=== PATIENT | male | born 1970 | race Caucasian/White ===

== ENCOUNTER 2018-07-02 05:42 | Day surgery (SDC) | payer OTHER ==
[~2018-07-02 05:42] MED LIST: CEFAZOLIN 2 GM/D5W RTU 2 GM/50 ML RTUPB IV PRN; LACTATED RINGERS 1000 ML IV PRN; LIDOCAINE 0.5% INJ-PF (5 MG/ML) 50 ML SDV SUBCUT PRN
[2018-07-02] MEDS ORDERED: CEFAZOLIN 2 GM/D5W RTU 2 GM/50 ML RTUPB IV ONE (06:16)
[2018-07-02] MEDS ORDERED: FENTANYL CITRATE INJ/PF 100 MCG/2 ML AMPUL ONE ×2 (06:39→06:42)
[2018-07-02] MEDS ORDERED: KETOROLAC TROMETHAMINE 60 MG/2 ML SDV ONE (06:39)
[2018-07-02] MEDS ORDERED: MIDAZOLAM 2 MG/2 ML INJ ONE (06:40)
[2018-07-02] MEDS ORDERED: HYDROMORPHONE HCL INJ/PF 2 MG/ML AMPULE ONE (06:40)
[2018-07-02] MEDS ORDERED: EPHEDRINE SULFATE INJ 50 MG/1 ML AMPULE ONE (06:40)
[2018-07-02] MEDS ORDERED: ONDANSETRON HCL INJ/PF 4 MG/2 ML SDV ONE (06:40)
[2018-07-02] MEDS ORDERED: DEXAMETHASONE SOD PHOSPHATE INJ 4 MG/1 ML VIAL ONE (06:40)
[2018-07-02] MEDS ORDERED: ACETAMINOPHEN 1,000 MG/100 ML RTUPB IV ONE (06:41)
[2018-07-02] MEDS ORDERED: PROPOFOL INJ 200 MG/20 ML VIAL IV ONE ×2 (06:41→07:05)
[2018-07-02] MEDS ORDERED: DEXMEDETOMIDINE INJ 80 MCG/20 ML VIAL IV ONE (07:05)
[2018-07-02] MEDS ORDERED: BACITRACIN INJ 50,000 UNIT VIAL ONE (07:21)
[2018-07-02] MEDS ORDERED: THROMBIN (BOVINE) TOPICAL 20000 UNIT VIAL ONE (07:22)
[2018-07-02] MEDS ORDERED: MORPHINE SULFATE 10 MG/ML INJ IV PRN ×2 (08:57→09:41)
[2018-07-02] MEDS ORDERED: OXYCODONE-ACETAMINOPHEN 5-325 MG TABLET PO PRN ×5 (08:57→11:00)
[2018-07-02] MEDS ORDERED: PROMETHAZINE HCL INJ 25 MG/1 ML VIAL IV PRN ×4 (08:57→09:41)
[2018-07-02] MEDS ORDERED: MEPERIDINE HCL/PF INJ 25 MG/1 ML DISP.SYRIN IV PRN ×2 (08:57→09:41)
[2018-07-02] MEDS ORDERED: DIPHENHYDRAMINE HCL 50 MG/ML VIAL IV PRN ×2 (08:57→09:41)
[2018-07-02] MEDS ORDERED: FENTANYL CITRATE INJ/PF 100 MCG/2 ML AMPUL IV PRN ×6 (08:57→09:41)
[2018-07-02] MEDS ORDERED: ONDANSETRON HCL INJ/PF 4 MG/2 ML SDV IV PRN ×3 (08:57→11:33)
[2018-07-02] MEDS: FENTANYL CITRATE INJ/PF 100 MCG/2 ML AMPUL ONE ×2 (10:45→11:00)
[2018-07-02] MEDS: HYDROCOD/ACETAMIN 7.5-325 MG/15 ML ORAL SOLN UDCUP PO PRN ×2 (10:45→11:50)
--- NOTE | 2018-07-02 10:46 | OPERATIVE REPORT E ---
Operative Report NAME: MIKHAIL MANN : 1970 AGE: 48Y DATE OF SURGERY: 07/02/2018 ROOM: PREOPERATIVE DIAGNOSIS: HERNIATED NUCLEUS PULPOSUS, STENOSIS, RADICULITIS, DEGENERATIVE DISK DISEASE, NECK PAIN. POSTOPERATIVE DIAGNOSIS: HERNIATED NUCLEUS PULPOSUS, STENOSIS, RADICULITIS, DEGENERATIVE DISK DISEASE, NECK PAIN. OPERATION: C6-7 anterior cervical diskectomy and fusion with instrumentation and interbody spacer, allograft, iliac crest aspiration through separate incision, right iliac crest for bone marrow aspirate to be used with allograft in interbody spacer. SURGEON: YELENA ESTRELLA M.D. ERP SPECIALIST: Maciel Contreras PA-C ANESTHESIA: General endotracheal intubation. ESTIMATED BLOOD LOSS: 75 mL. INDICATIONS: The patient is a 48-year-old male who has a sizeable disk extrusion with severe spinal cord compression, myelopathic and radiculopathic symptoms. After discussion with the patient of the risks, indications, alternatives, including the fact that he has significant weakness and numbness and balance and gait disturbance problems, determination was to proceed with surgical intervention. I discussed with the patient the risks including the risk of infection, bleeding, damage to nerves or blood vessels, the risk of dural tear, the risk of spinal headache, the risk of needing further surgery, the risk of adjacent level arthritis which he has already, and possible need for further surgery. The patient also understood the risk of nonunion, which I discussed with him and the risk of dysphagia and dysphonia. We discussed these things with him and his and the patient wished to pursue surgical intervention. OPERATIVE TECHNIQUE: The patient was brought into the room, placed under anesthesia, received 2 grams of Ancef preoperatively. He had SCDs and warm blankets placed on him. Antibiotics were given within 1 our of cut time. After completion of prepping and draping under lateral C-arm fluoroscopy the C6-7 level was identified and marked appropriately. The right iliac crest is prepped and draped separately and the Jamshidi needle was introduced into the iliac crest 9 cm posterior to the anterior superior iliac spine. Upon aspiration of 3 mL of bone marrow aspirate, the site was cleansed and dressed with a Band-Aid. Then, attention was paid to the cervical spine. A bolster was placed between the shoulder blades. Next, placed in neutral position, arms and medial epicondyles are well padded and arms are tucked to the side. Neuromonitoring leads are placed *------* and baselines are obtained preoperatively. After completion of prepping and draping and after surgical timeout, a transverse incision was carried down through the skin using sharp dissection, then electrocautery, then the platysmas incised and the pretracheal fascia is dissected out. The esophagus and the trachea are retracted medially. The sternocleidomastoid with the blood vessels are retracted laterally and the prevertebral fascia is identified. Again, the [place] retractor system is positioned, exposing the prevertebral fascia and Kittner's are used to dissect out the prevertebral fascia. The disk space was identified at C6-7 and a bent needle was placed to fiordaliza the level at C6-7. Upon marking that level, lateral C-arm fluoroscopy was used to verify that level and upon verification of that level, Boyce pins are positioned into the C6 and C7 vertebral bodies. Then, upon retracting cephalad to caudad, a Boyce pin retractor was used to retract and expose that area. The microscope was then brought in. Under the microscope an annulotomy was performed and a complete diskectomy performed resecting the posterior longitudinal ligament which significantly there is extruded piece of disk behind the vertebral body of C7 which I removed piecemeal. Then there was a very large piece which had been extruded sitting all of the way behind the vertebral body. Removed using a long nerve hook and that is freed up. After that, the bipolar electrocautery was used to coagulation small little bleeders and foraminotomies were preformed bilaterally. The end plate are curetted to good bleeding bone and then the appropriate size spacing being 7 mm lordotic spacer determined based on the sizers. After that, the AGX coalition spacer 12 x 14 x 7 mm, 7 degree lordotic is utilized plus an AGX reduced profile 14 wide 17 high plate is attached together and is placed inline with the patient. After the spacer was filled with 2 mL of conduct matrix calcium phosphate putty with bone marrow aspirate is placed together in the interbody space. After attaching the spacer in the plate, the 16 x 3.6 mm self-drilling variable angle screws are placed into the plate and locked into the plate. Cranial motor testing is obtained in comparison to the preoperative cranial motor testing, found to be significantly improved and the patient did very well. Please note that bipolar electrocautery was utilized. FloSeal was also used to coagulate small little bleeders. The patient's wound was irrigated with a liter of bacitracin irrigation and then a 7-Flat faroese drain is brought in inferolateral to the incision with negative DUKE pressure. The platysma is reapproximated using 2-0 Vicryl. The drain stitch is tied to the skin and patient will be admitted and observed to see how he is doing. The patient tolerated the procedure well. Estimated blood 75 mL. Please note that the bone marrow aspirate is utilized as a better choice than bone marrow harvesting which has 20% chronic hip pain and similar fusion rates for 1 level plate with instrumentation and interbody spacer. Patient tolerated the procedure well. Extubated and brought to the recovery room. Condition is stable. Please note, the procedure could not have been done without the assistance of Maciel Contreras. DICTATING PHYSICIAN: YELENA ESTRELLA M.D. [id number] PHY#: [id number] ID: [id number] JOB#: [id number] ACCT: [id number] cc:YELENA ESTRELLA M.D. >
[2018-07-02] MEDS ORDERED: ACETAMINOPHEN SOLN 325 MG/10.15 ML UDCUP PO PRN (10:59)
--- NOTE | 2018-07-02 11:02 | RADIOLOGY REPORT (SQ) ---
EXAM DESCRIPTION: CERV SP 3 VIEW OR LESS; NO CHG FLUORO COMPLETED DATE/TIME: 07/02/2018 10:44 am REASON FOR STUDY: C6-7 ANTERIOR CERVICAL DISKECTOMY M50.10 CERVICAL DISC DISORDER W RADICULOPATHY, UNSP CERVICAL M50.30 OTHER CERVICAL DISC DEGENERATION, UNSP CERVICAL REGIO M48.02 SPINAL STENOSIS, CERVICAL REGION COMPARISON: Outside MRI 06/04/2018 FLUOROSCOPY TIME: 0.2 minutes 4 digital fluoroscopic images saved to PACS. TECHNIQUE: Intra-operative images acquired during surgical procedure to evaluate progress. NUMBER OF IMAGES: 4 digital fluoroscopic images LIMITATIONS: None. FINDINGS: Intra procedural imaging and fluoro during anterior discectomy and fusion at the C6-7 leve l. Please see the operative report for further details IMPRESSION: Intra procedural imaging and fluoro during cervical discectomy and fusion COMMENT: Quality ID [id number]: Final reports for procedures using fluoroscopy that document radiation exp osure indices, or exposure time and number of fluorographic images (if radiation exposure indices are not available) Please consult full operative report of the attending physician for description of the procedure. TECHNICAL DOCUMENTATION: JOB ID: [id number] [employer]- All Rights Reserved Reading location - IP/workstation name: [email or web address]
--- NOTE | 2018-07-02 11:02 | RADIOLOGY REPORT (SQ) ---
EXAM DESCRIPTION: CERV SP 3 VIEW OR LESS; NO CHG FLUORO COMPLETED DATE/TIME: 07/02/2018 10:44 am REASON FOR STUDY: C6-7 ANTERIOR CERVICAL DISKECTOMY M50.10 CERVICAL DISC DISORDER W RADICULOPATHY, UNSP CERVICAL M50.30 OTHER CERVICAL DISC DEGENERATION, UNSP CERVICAL REGIO M48.02 SPINAL STENOSIS, CERVICAL REGION COMPARISON: Outside MRI 06/04/2018 FLUOROSCOPY TIME: 0.2 minutes 4 digital fluoroscopic images saved to PACS. TECHNIQUE: Intra-operative images acquired during surgical procedure to evaluate progress. NUMBER OF IMAGES: 4 digital fluoroscopic images LIMITATIONS: None. FINDINGS: Intra procedural imaging and fluoro during anterior discectomy and fusion at the C6-7 leve l. Please see the operative report for further details IMPRESSION: Intra procedural imaging and fluoro during cervical discectomy and fusion COMMENT: Quality ID [id number]: Final reports for procedures using fluoroscopy that document radiation exp osure indices, or exposure time and number of fluorographic images (if radiation exposure indices are not available) Please consult full operative report of the attending physician for description of the procedure. TECHNICAL DOCUMENTATION: JOB ID: [id number] [employer]- All Rights Reserved Reading location - IP/workstation name: [email or web address]
[2018-07-02] MEDS ORDERED: DIAZEPAM 5 MG TABLET PO PRN (11:30)
[2018-07-02] MEDS ORDERED: PHENOL/SODIUM PHENOLATE 100 SPRAY/177 ML BOTTLE PO PRN (11:32)
[2018-07-02] MEDS ORDERED: PROMETHAZINE HCL 25 MG TABLET PO PRN (11:33)
[2018-07-02] MEDS ORDERED: PROMETHAZINE HCL INJ 25 MG/1 ML VIAL IM PRN (11:34)
[2018-07-02] MEDS ORDERED: HYDROCOD/ACETAMIN 7.5-325 MG/15 ML ORAL SOLN UDCUP ONE (11:52)
[2018-07-02] MEDS ORDERED: METHOCARBAMOL INJ/PF 1000 MG/10 ML SDV IV ONE (12:00)
[2018-07-02] MEDS ORDERED: FAMOTIDINE 20 MG TABLET PO SCH (12:00)
[2018-07-02] MEDS ORDERED: SUCCINYLCHOLINE CHLORIDE INJ 200 MG/10 ML VIAL ONE (13:44)
[2018-07-02] MEDS ORDERED: PHENOL/SODIUM PHENOLATE 100 SPRAY/177 ML BOTTLE PO SCH (14:00)
[2018-07-02] MEDS ORDERED: CEFAZOLIN SODIUM 2 GM in DEXTROSE 5%-WATER 100 ML IV SCH (15:00)
[2018-07-02 15:44] VITALS: BP 132/74
--- NOTE | 2018-07-02 16:12 | DISCHARGE SUMMARY E ---
Discharge Summary NAME: MIKHAIL MANN : 1970 AGE: 48Y ADMITTED: 07/02/2018 DISCHARGED: 07/02/2018 ATTENDING/ADMITTING PHYSICIAN: Irene Estrella M.D. PREOPERATIVE DIAGNOSIS/ADMITTING DIAGNOSIS: C6-7 herniated nucleus pulposus with degenerative disk and arthritis. POSTOPERATIVE DIAGNOSIS: Status post C6-7 anterior cervical diskectomy and fusion with instrumentation, interbody spacer, allograft, and iliac crest aspiration. BRIEF HISTORY AND COURSE OF HOSPITAL STAY: The patient is a 48-year-old male with right upper extremity numbness and weakness. After a discussion with the patient of the risks, indications, and alternatives, the patient underwent the decision to undergo a 1-level anterior cervical diskectomy and fusion. He did well postoperatively and requested to be discharged home and was doing well. The patient's condition is stable. Diet is soft diet as tolerated, advance to regular diet. The patient's medications include oxycodone for pain, Robaxin for muscle relaxant, and 3 days of antibiotics orally because he has not completed a total of 2 doses postoperatively of Ancef. PROGRESSION: The patient will be progressing with physical therapy after I see him. Drain was removed postoperatively and dressing was changed. The patient is doing well. Plan is for him to follow up with me in 10 to 14 days. This patient's diet is regular. Condition is stable. DICTATING PHYSICIAN: IRENE ESTRELLA M.D. [id number] PHY#: [id number] ID: [id number] JOB#: [id number] ACCT: [id number] cc:IRENE ESTRELLA M.D. >
[2018-07-02] MEDS ORDERED: SENNOSIDES/DOCUSATE 8.6-50 MG 1 EACH TABLET PO SCH (18:00)
== END 2018-07-02 15:40 | disposition home or self-care (01) ==
LOC: OROUT 05:42
PROVIDERS: ATTEND Orthopaedic Surgery
DX: M50.223 Other cervical disc displacement at C6-C7 level (principal); M48.02 Spinal stenosis, cervical region; M50.10 Cervical disc disorder with radiculopathy, unspecified cervical region; M50.30 Other cervical disc degeneration, unspecified cervical region; M19.90 Unspecified osteoarthritis, unspecified site; E11.9 Type 2 diabetes mellitus without complications; Z79.4 Long term (current) use of insulin; Z79.1 Long term (current) use of non-steroidal anti-inflammatories (NSAID); G51.0 Bell's palsy
CPT/HCPCS: 82962; 72040; 22551; C1713 ×2; J2250; J3490 ×3; J0690 ×2; J1100; J3010; J2800; J1170; J0330; J2405; J2704; J0131; 670; J1885

== ENCOUNTER → 2018-10-23 | Outpatient (CLI) | payer OTHER ==
--- NOTE | 2018-10-23 10:35 | RADIOLOGY REPORT (SQ) ---
EXAM DESCRIPTION: MRI CERVICAL SPINE WITHOUT COMPLETED DATE/TIME: 10/23/2018 9:47 am REASON FOR STUDY: RADICULOPATHY, CERVICAL REGION M54.12 RADICULOPATHY, CERVICAL REGION COMPARISON: None. TECHNIQUE: Sagittal and Axial imaging includes T1, T2, STIR and gradient echo sequences. LIMITATIONS: Susceptibility artifact. Motion. FINDINGS: ALIGNMENT: Normal. VERTEBRAE: Intact. BONE MARROW: Normal. No marrow replacement or reactive changes. DISCS: Desiccation multiple levels. HARDWARE: Anterior fusion C6-7. CORD AND BASE OF BRAIN: Normal in size and signal intensity. SOFT TISSUES: No soft tissue masses. C1-C2: No significant spinal stenosis. C2-C3: No significant spinal stenosis or exit foraminal stenosis. C3-C4: Disc bulge. Minimal narrowing of the spinal canal. C4-C5: Disc bulge. Minimal narrowing of the spinal canal. C5-C6: Mild spinal stenosis due to left paracentral disc osteophyte complex. C6-C7: Prior anterior fusion. No significant spinal stenosis. Mild right and moderate left neural f oraminal narrowing. C7-T1: No significant spinal stenosis or exit foraminal stenosis. UPPER THORACIC: Incompletely imaged. No significant spinal stenosis or exit foraminal stenosis. OTHER: No other significant finding. IMPRESSION: Mild spinal stenosis C5-6. Neural foraminal stenosis C6-7 status post anterior fusion. TECHNICAL DOCUMENTATION: JOB ID: [id number]- All Rights Reserved Reading location - IP/workstation name: [email or web address]
== END ==
LOC: RAD 09:08
PROVIDERS: ATTEND Nurse Practitioner Family
DX: M54.2 Cervicalgia (principal); M48.02 Spinal stenosis, cervical region
CPT/HCPCS: 72141